=== PATIENT | female | born 1945 | race Caucasian/White ===

== ENCOUNTER 2022-04-05 08:29 | Day surgery (SDC) | payer MEDICARE, SELFPAY ==
[2022-03-31 10:58] VITALS: BMI 28.7
--- NOTE | 2022-04-01 09:24 | MHC.SHP ---
Pre-Procedural Eval Section A Date of Service: 04/01/22 The patient is an INPATIENT: No Changes since office visit: No Cold of Flu in the past 2 weeks, No New Medical Problems, No Changes in Medication and No Patient answered all questions The History & Physical has been completed within 30 days and I have reviewed it.: Yes Section B Chief Complaint: cataract Allergies: Allergies Allergy/AdvReac Type Severity Reaction Status Date / Time Penicillins Allergy Unknown Verified 03/29/22 11:50 Plan Diagnosis/Plan: Unchanged I have reviewed the history and physical and performed a pertinent physical examination on my patient. No changes have occurred unless specified.
--- NOTE | 2022-04-02 12:25 | P.CONAN_ITS ---
Documented by User: Lala Allen NP 04/02/22 12:28 HPI - Anesthesia Eval Consult details Narrative: 77yo F for Left Cataract Extraction IOL Insertion PCP cleared No previous cataract on record [facility] Past Medical History Medical History (Updated 03/31/22 @ 10:58 by Kimi Lee, DAWN) Cataract Cerebral amyloid angiopathy Cognitive impairment HTN (hypertension) Hyperlipidemia Lives in assisted living facility Memory impairment Surgical History Surgical History (Updated 03/29/22 @ 11:50 by Kimi Lee, RN) Hx of colonoscopy Social History Social History Are you a primary complex care nurse to a significant other at home: No Patient Tobacco Use Status: Never used Tobacco Use of substances other than those prescribed or required for medical reasons: No Are you DNR?: No Advance Directives: No Advance Directives Information Provided: Yes Advance Directives on File: No Nutrition Risks: Surgical patient >75years Meds Allergies Allergy/AdvReac Type Severity Reaction Status Date / Time Penicillins Allergy Unknown Verified 03/29/22 11:50 Home Medications Medication Instructions Recorded Confirmed Last Taken Type amlodipine 2.5 mg tablet 1 tab PO DAILY 03/29/22 03/29/22 04/05/22 History Exam Exam Date and Time: April 02, 2022 1225 Height,Weight and Vital Signs: Height 5 ft 3.78 in Weight 75.4 kg Assessment and Plan Assessment Anesthesia Assessment: Chart Reviewed Documented by User: Nanda Freire MD 04/05/22 11:21 [facility] Past Medical History Medical History (Updated 03/31/22 @ 10:58 by Kimi Lee RN) Cataract Cerebral amyloid angiopathy Cognitive impairment HTN (hypertension) Hyperlipidemia Lives in assisted living facility Memory impairment Family History Family history of problems with anesthesia: No Surgical History Surgical History (Updated 03/29/22 @ 11:50 by Kimi Lee RN) Hx of colonoscopy History of Problems with Anesthesia: No Social History Social History Are you a primary complex care nurse to a significant other at home: No Patient Tobacco Use Status: Never used Tobacco Use of substances other than those prescribed or required for medical reasons: No Are you DNR?: No Advance Directives: No Advance Directives Information Provided: Yes Advance Directives on File: No Nutrition Risks: Surgical patient >75years Meds Allergies Allergy/AdvReac Type Severity Reaction Status Date / Time Penicillins Allergy Unknown Verified 03/29/22 11:50 Home Medications Medication Instructions Recorded Confirmed Last Taken Type amlodipine 2.5 mg tablet 1 tab PO DAILY 03/29/22 03/29/22 04/05/22 History Exam Airway Mallampati Class: III TM Dist: >3cm Neck ROM: Full Assessment and Plan Assessment Anesthesia Assessment: Anesthesia Plan Discussed Final Anesthetic Review Family History of Problems with Anesthesia: No History of Problems with Anesthesia: No NPO: Yes ASA Class: II Final Preanesthetic Review: No Changes in Pt Med Stat, Meds/Allgs Chart Reviewed, Consent Obtained/Reviewed and Anes Risks/Benef Reviewed Patient Risk: Low Procedure Risk: Low Anesthetic Plan Anesthetic Plan: MAC: and Regional Block
[2022-04-05 10:32] VITALS: BP 149/62; PULSE 56; RESP 16; TEMP 36.1; O2SAT 96
[2022-04-05] MEDS: Tetracaine HCl/PF 0.5% Oph Sol 4 ML DROPS 1 DROP EYE-LEFT (11:07)
[2022-04-05] MEDS: Lactated Ringers 500 ML 50 ML IV (11:09)
[2022-04-05] MEDS: Tropicamide 1 % Ophth Sol 3 ML BTL 1 DROP EYE-LEFT ×3 (11:10→11:16)
[2022-04-05] MEDS: Phenylephrine HCL 2.5% Oph SoL 2 ML BOTTLE 1 DROP EYE-LEFT ×3 (11:12→11:18)
--- NOTE | 2022-04-05 12:33 | HO.PNOPHT ---
Ophthalmology Procedure Procedure Date of Service: 04/05/22 Ophthalmology Viscoelastic: Healon Duet Dual Pack Pro Ophthalmology Lenses: TECNIS XCB00 (9.5) Procedure Notes: PREOPERATIVE DIAGNOSIS: Decreased visual acuity left eye secondary to cataract POSTOPERATIVE DIAGNOSIS: Same PROCEDURE: Left cataract extraction with intraocular lens insertion SURGEON: Otto Saucedo M.D. ANESTHESIA: Topical/MAC ESTIMATED BLOOD LOSS: None COMPLICATIONS: None After obtaining informed consent, the patient was brought to the operation room suite and placed in the supine position. After adequate sedation per anesthesia, topical drops of Tetracaine were given to the left eye. The eye was then prepped and draped in the usual sterile fashion. The operating room microscope was then positioned over the operative eye and a lid speculum placed. A paracentesis was created. Viscoelastic was then instilled into the anterior chamber. A three plane incision was then created temporally, utilizing a 2.85 mm keratome. Capsulotomy forceps were then utilized to create a circular tear capsulotomy. Hydrodissection and hydrodelineation were carried out until adequate mobilization of the nucleus occurred. Phacoemulsification was then utilized to remove the dense central nucleus followed by removal of the cortical material utilizing the automated aspiration irrigation unit. Viscoat elastic was instilled into the posterior capsular bag followed by placement of a posterior chamber intraocular lens without difficulty. The residual Viscoat elastic was then removed utilizing the automated IA machine. The wound was check and found to be watertight. The patient tolerated the procedure well and the lid speculum was removed. Intracameral injection of Vigamox 0.1 mL followed by a subtenon injection of Kenalog-40 0.2 mL were administered. The patient will be seen in the a.m.
[2022-04-05 13:04] VITALS: BP 148/73; PULSE 68; RESP 18; TEMP 36.4; O2SAT 96
== END 2022-04-05 13:12 | disposition home or self-care (01) ==
PROVIDERS: PCP Nurse Practitioner Family; Visit Provider Ophthalmology
PROC: (CPT 66985; principal; 2022-04-05 11:50)
DX: H25.12 Age-related nuclear cataract, left eye (principal); H52.4 Presbyopia; F03.90 Unspecified dementia, unspecified severity, without behavioral disturbance, psychotic disturbance, mood disturbance, and anxiety; E78.5 Hyperlipidemia, unspecified; I10 Essential (primary) hypertension; Z79.899 Other long term (current) drug therapy; Z88.0 Allergy status to penicillin
CPT/HCPCS: 66984; J2250; J3010; J3300; V2632; V2788

== ENCOUNTER 2022-04-26 08:53 | Day surgery (SDC) | payer MEDICARE, SELFPAY ==
[2022-03-31 11:04] VITALS: BMI 28.7
--- NOTE | 2022-04-22 13:10 | MHC.SHP ---
Pre-Procedural Eval Section A Date of Service: 04/22/22 The patient is an INPATIENT: No Changes since office visit: No Cold of Flu in the past 2 weeks, No New Medical Problems, No Changes in Medication and No Patient answered all questions The History & Physical has been completed within 30 days and I have reviewed it.: Yes Section B Chief Complaint: cataract Allergies: Allergies Allergy/AdvReac Type Severity Reaction Status Date / Time Penicillins Allergy Unknown Verified 03/29/22 11:50 Plan Diagnosis/Plan: Unchanged I have reviewed the history and physical and performed a pertinent physical examination on my patient. No changes have occurred unless specified.
--- NOTE | 2022-04-23 09:25 | P.CONAN_ITS ---
Documented by User: Lala Allen NP 04/23/22 09:26 HPI - Anesthesia Eval Consult details Narrative: 77yo F for Right Cataract Extraction IOL Insertion PCP cleared Left cataract 04/05/22 with MAC: Fent 50, Midaz 1 [facility] Past Medical History Medical History Cataract Cerebral amyloid angiopathy Cognitive impairment HTN (hypertension) Hyperlipidemia Lives in assisted living facility Memory impairment Family History Family history of problems with anesthesia: No Surgical History Surgical History Hx of colonoscopy History of Problems with Anesthesia: No Social History Social History Are you a primary rental boats caretaker to a significant other at home: No Patient Tobacco Use Status: Never used Tobacco Use of substances other than those prescribed or required for medical reasons: No Are you DNR?: No Advance Directives: No Advance Directives Information Provided: Yes Advance Directives on File: No Nutrition Risks: Surgical patient >75years Meds Allergies Allergy/AdvReac Type Severity Reaction Status Date / Time Penicillins Allergy Unknown Verified 03/29/22 11:50 Home Medications Medication Instructions Recorded Confirmed Last Taken Type amlodipine 2.5 mg tablet 1 tab PO DAILY 03/29/22 03/29/22 04/05/22 History Exam Exam Date and Time: April 23, 2022924 Height,Weight and Vital Signs: Height 5 ft 3.78 in Weight 75.4 kg Assessment and Plan Assessment Anesthesia Assessment: Chart Reviewed Final Anesthetic Review Family History of Problems with Anesthesia: No History of Problems with Anesthesia: No Documented by User: Ruiz Hernandez MD 04/26/22 12:29 [facility] Past Medical History Medical History Cataract Cerebral amyloid angiopathy Cognitive impairment HTN (hypertension) Hyperlipidemia Lives in assisted living facility Memory impairment Surgical History Surgical History Hx of colonoscopy Social History Social History Are you a primary rental boats caretaker to a significant other at home: No Patient Tobacco Use Status: Never used Tobacco Use of substances other than those prescribed or required for medical reasons: No Are you DNR?: No Advance Directives: No Advance Directives Information Provided: Yes Advance Directives on File: No Nutrition Risks: Surgical patient >75years Meds Allergies Allergy/AdvReac Type Severity Reaction Status Date / Time Penicillins Allergy Unknown Verified 03/29/22 11:50 Home Medications Medication Instructions Recorded Confirmed Last Taken Type amlodipine 2.5 mg tablet 1 tab PO DAILY 03/29/22 03/29/22 04/05/22 History Exam Airway Mallampati Class: II TM Dist: >3cm Neck ROM: Full Loose/Missing/Broken Teeth: No Heart: [id number] Lungs: cta b/l Assessment and Plan Assessment Anesthesia Assessment: Anesthesia Plan Discussed Final Anesthetic Review NPO: Yes ASA Class: II Final Preanesthetic Review: No Changes in Pt Med Stat, Meds/Allgs Chart Revi ewed, Consent Obtained/Reviewed and Anes Risks/Benef Reviewed Patient Risk: Intermediate Procedure Risk: Low Assessment/Block/Sedation in SS: Assess/Block/Sedation-SS Anesthetic Plan Anesthetic Plan: MAC: and Agree w/ Assess. and Plan Disposition: Standard PACU
[2022-04-26 09:12] VITALS: BP 147/52; RESP 18; TEMP 36.3; O2SAT 98
[2022-04-26] MEDS: Cyclopentolate 1 % Ophth Sol 2 ML DRPBTL 1 DROP EYE-RIGHT ×3 (12:09→12:13)
[2022-04-26] MEDS: Tetracaine HCl/PF 0.5% Oph Sol 4 ML DROPS 1 DROP EYE-RIGHT (12:09)
[2022-04-26] MEDS: Phenylephrine HCL 2.5% Oph SoL 2 ML BOTTLE 1 DROP EYE-RIGHT ×3 (12:10→12:14)
[2022-04-26] MEDS: Lactated Ringers 500 ML 50 ML IV (12:10)
[2022-04-26] MEDS: Tropicamide 1 % Ophth Sol 3 ML BTL 1 DROP EYE-RIGHT ×3 (12:10→12:14)
--- NOTE | 2022-04-26 13:39 | HO.PNOPHT ---
Ophthalmology Procedure Procedure Date of Service: 04/26/22 Ophthalmology Viscoelastic: Healon Duet Dual Pack Pro Ophthalmology Lenses: TECNIS XCB00 (9.5) Procedure Notes: PREOPERATIVE DIAGNOSIS: Decreased visual acuity right eye secondary to cataract POSTOPERATIVE DIAGNOSIS: Same PROCEDURE: Right cataract extraction with intraocular lens insertion SURGEON: Otto Saucedo M.D. ANESTHESIA: Topical/MAC ESTIMATED BLOOD LOSS: None COMPLICATIONS: None After obtaining informed consent, the patient was brought to the operating room suite and placed in the supine position. After adequate sedation per anesthesia, topical drops of Tetracaine were given to the right eye. The eye was then prepped and draped in the usual sterile fashion. The operating room microscope was then positioned over the operative eye and a lid speculum placed. A paracentesis was created. Viscoelastic was then instilled into the anterior chamber. A three plane incision was then created temporally, utilizing a 2.85 mm keratome. Capsulotomy forceps were then utilized to create a circular tear capsulotomy. Hydrodissection and hydrodelineation were carried out until adequate mobilization of the nucleus occurred. Phacoemulsification was then utilized to remove the dense central nucleus followed by removal of the cortical material utilizing the automated aspiration irrigation unit. Viscoelastic was instilled into the posterior capsular bag followed by placement of a posterior chamber intraocular lens without difficulty. The residual Viscoelastic was then removed utilizing the automated IA machine. The wound was checked and found to be watertight. The patient tolerated the procedure well and the lid speculum was removed. Intracameral injection of Vigamox 0.1 mL followed by a subtenon injection of Kenalog-40 0.2 mL were administered. The patient will be seen in the a.m.
[2022-04-26 14:09] VITALS: BP 153/78; PULSE 51; RESP 14; TEMP 36.4; O2SAT 98
== END 2022-04-26 14:36 | disposition home or self-care (01) ==
PROVIDERS: PCP Nurse Practitioner Family; Visit Provider Ophthalmology
PROC: (CPT 66985; principal; 2022-04-26 12:20)
DX: H25.11 Age-related nuclear cataract, right eye (principal); H52.4 Presbyopia; I10 Essential (primary) hypertension; E78.5 Hyperlipidemia, unspecified; F03.90 Unspecified dementia, unspecified severity, without behavioral disturbance, psychotic disturbance, mood disturbance, and anxiety; Z79.899 Other long term (current) drug therapy; Z88.0 Allergy status to penicillin
CPT/HCPCS: 66984; J2250; J3010; J3300; V2632